=== PATIENT | male | born 1980 | race Caucasian/White ===

== ENCOUNTER 2021-05-19 18:29 | Emergency (ER) | payer SELFPAY ==
--- NOTE | 2021-05-19 19:00 | NUR ---
CALLED X1. NO SHOW
--- NOTE | 2021-05-19 19:13 | NUR ---
PATIENT LEFT WITHOUT BEING TRIAGED . NO FURTHER CARE PROVIDED FOR PATIENT.
== END 2021-05-19 19:13 | disposition left against medical advice (07) ==
LOC: MED 18:29
DX: Z53.21 Procedure and treatment not carried out due to patient leaving prior to being seen by health care provider (principal)